=== PATIENT | male | born 1975 | race Caucasian/White ===

== ENCOUNTER 2019-07-05 09:28 | Emergency (ER) | payer OTHER ==
[~2019-07-05] VITALS: Ht 180.3 cm; Wt 106.6 kg
[~2019-07-05 09:28] MED LIST: DIFLUCAN100 MG PO; KEFLEX500 MG PO; MOBIC15 MG PO; PENICILLIN V P500 MG PO; PROZAC10 MG PO; QUINU10 PD PO; SEROQUEL 50 MG50 MG PO; TRAMADOL 50 MG50 MG PO
[2019-07-05 09:29] VITALS: BP 144/98
[2019-07-05] MEDS ORDERED: DOXYCYCLINE 10100 MG PO (09:51)
== END 2019-07-05 10:06 | disposition home or self-care (01) ==
LOC: ER 09:28
DX: L03.211 Cellulitis of face (principal); F17.210 Nicotine dependence, cigarettes, uncomplicated; Z88.6 Allergy status to analgesic agent

== ENCOUNTER 2020-05-24 12:56 | Emergency (ER) | payer OTHER ==
[~2020-05-24] VITALS: Ht 177.8 cm; Wt 99.8 kg
[~2020-05-24 12:56] MED LIST changes: +DOXYCYCLINE 10100 MG PO
[2020-05-24] MEDS ORDERED: KEFLEX500 M1 PO (14:52)
[2020-05-24 14:59] VITALS: BP 126/85
== END 2020-05-24 15:33 | disposition home or self-care (01) ==
LOC: ER 12:56
DX: S61.412A Laceration without foreign body of left hand, initial encounter (principal); F17.210 Nicotine dependence, cigarettes, uncomplicated; Z88.6 Allergy status to analgesic agent; Z79.899 Other long term (current) drug therapy; W31.89XA Contact with other specified machinery, initial encounter; Y93.89 Activity, other specified; Y92.89 Other specified places as the place of occurrence of the external cause; Y99.9 Unspecified external cause status